=== PATIENT | female | born 1950 | race Caucasian/White ===

== ENCOUNTER → 2025-03-11 08:45 | Outpatient (REF) | payer OTHER, SELFPAY | LOC: HWWDC 08:45 | PROVIDERS: ATTENDING PHYSICIAN Physician Assistant Medical | DX: M85.80 Other specified disorders of bone density and structure, unspecified site (principal); Z12.31 Encounter for screening mammogram for malignant neoplasm of breast | CPT/HCPCS: 77063; 77067; 77080 ==